=== PATIENT | female | born 1965 | race Caucasian/White ===

== ENCOUNTER 2022-10-12 15:26 | Emergency (ER) | payer BC ==
[~2022-10-12] VITALS: Ht 152.4 cm; Wt 61.7 kg
[2022-10-12 15:30] VITALS: BP_SYST 139
--- NOTE | 2022-10-12 16:10 | NUR ---
Placed in room 08 . Placed on property assessment monitor, blood pressure machine and pulse oximeter. To gown for exam. Side rails up. Report given to JOHANNA JACOBSON AND JOHANNA DAMON.
--- NOTE | 2022-10-12 16:14 | NUR ---
PT BIB FROM HOME C/O SEVERE ABD PAIN, AND DIARRHEA X 6 DAYS. PT HAS NAUSEA INTERMITTANTLY. PT STATES HAS COUGH X 1 MONTH. LS CTA JONA. PT RESTING IN BED W/ BEDSIDE.
--- NOTE | 2022-10-12 16:19 | NUR ---
ER at bedside examining patient.
[2022-10-12] MEDS ORDERED: KETOROLAC TROMETHAMINE 30 MG VIAL IVP ONE (16:30)
[2022-10-12] MEDS ORDERED: ONDANSETRON HCL 4 MG/2 ML VIAL IVP ONE (16:30)
[2022-10-12] MEDS ORDERED: NACL 0.9% 1,000 ML IV ONE ×2 (16:30→18:00)
[2022-10-12] MEDS ORDERED: ACETAMINOPHEN 325 MG TABLET PO ONE (16:30)
[2022-10-12 16:38] LABS: BILIRUBIN,URINE NEGATIVE (NEGATIVE); BLOOD, URINE 2+ (NEGATIVE); CLARITY/URINE CLEAR (CLEAR); COLOR,URINE YELLOW (YELLOW); GLUCOSE,URINE NEGATIVE (NEGATIVE); KETONES,URINE NEGATIVE (NEGATIVE); LEUKOCYTE ESTERASE ,URINE NEGATIVE (NEGATIVE); NITRITE, URINE NEGATIVE (NEGATIVE); PROTEIN URINE TRACE (NEGATIVE); UROBILINOGEN,URINE 0.2 (0.2-1.0)
[2022-10-12 16:58] LABS: BACTERIA,URINE FEW /HPF (None Seen); MUCUS,URINE 2+ /LPF (None Seen); WBC,URINE 0-3 /HPF (0-3)
[2022-10-12 16:59] LABS: BASOPHILS % (AUTO) 0.2 % (0.0-2.0); EOSINOPHILS # (AUTO) 0.1 K/uL (0.0-0.4); EOSINOPHILS % (AUTO) 1.1 % (0.0-4.0); HEMATOCRIT 34.6 % (36-48); HEMOGLOBIN 11.5 g/dL (12.0-16.0); LYMPHOCYTES # (AUTO) 1.3 K/uL (1.0-5.5); LYMPHOCYTES % (AUTO) 9.8 % (20.5-51.5); MEAN CORPUSCULAR HEMOGLOBIN 29 pg (27-31); MEAN CORPUSCULAR HGB CONC 33 % (32-36); MEAN CORPUSCULAR VOLUME 87 fL (79.0-98.0); MONOCYTES # (AUTO) 1.3 K/uL (0.0-1.0); MONOCYTES % (AUTO) 9.7 % (1.7-9.3); NEUTROPHILS # (AUTO) 10.3 K/uL (1.8-7.7); NEUTROPHILS % (AUTO) 79.2 % (40.0-70.0); PLATELET COUNT (AUTO) 270 K/uL (130-430); RED BLOOD CELL COUNT(AUTO) 3.99 MIL/uL (4.2-6.2); RED CELL DISTRIBUTION WIDTH 13.6 % (9.0-15.0)
[2022-10-12] MEDS ORDERED: ONDANSETRON HCL 4 MG/2 ML VIAL ONE (17:12)
[2022-10-12 17:38] LABS: CALCIUM 8.3 mg/dL (8.4-11.0); CREATININE 0.7 mg/dL (0.55-1.30)
[2022-10-12 17:43] LABS: TOTAL BILIRUBIN 0.6 mg/dL (0.0-1.0)
[2022-10-12] MEDS ORDERED: POTASSIUM CHLORIDE 20 MEQ TAB.PRT.SR PO ONE (18:00)
[2022-10-12] MEDS ORDERED: KETOROLAC TROMETHAMINE 15 MG VIAL IVP ONE (19:00)
[2022-10-12] MEDS ORDERED: ONDA-8 TL (19:07)
[2022-10-12] MEDS ORDERED: ACET325T PO (19:07)
[2022-10-12] MEDS ORDERED: IBUP-1971 PO (19:07)
--- NOTE | 2022-10-12 19:56 | NUR ---
patient is medically cleared for discharge, at the time of discharge patient is ao x4, vital signs are stable and within normal limis. Patient fully ambultory upon discharge. iv removed., bleeding control and catheter tip intact. Given all discharge and rx instructions, all questions answered
[2022-10-12 20:03] VITALS: BP_SYST 110
[2022-10-13] MEDS ORDERED: VANC125C10 PO (18:39)
--- NOTE | 2022-10-13 19:00 | NUR ---
LAB RESULTS FOR C.DIFF + SW DR. SANDY REGARDING RESULTS. E-RX FOR VANCOMYCIN TO PT'S PHARMACY. LM FOR PATIENT TO CALL BACK-NO ANSWER TO BOTH PHONE NUMBERS GIVEN: [phone] & [phone]
== END 2022-10-12 20:03 | disposition home or self-care (01) ==
LOC: SED 15:26
DX: A08.4 Viral intestinal infection, unspecified (principal); R11.2 Nausea with vomiting, unspecified; R51.9 Headache, unspecified; R19.7 Diarrhea, unspecified; Z79.899 Other long term (current) drug therapy; Z20.822 Contact with and (suspected) exposure to COVID-19
CPT/HCPCS: 99284; 96374; 96361; 96375; 87426; 80053; 81000; 83690; 83735; 85025; 87040; 87045; 87230; 89055; 36415; 83605; 87804 ×2; J1885 ×2; J2405; J7030